=== PATIENT | male | born 1950 | race Caucasian/White ===

== ENCOUNTER 2023-05-16 13:51 | Outpatient (CLI) | payer MEDICARE, BC | END 2023-05-16 23:59 | disposition critical access hospital (66) | LOC: EMS 13:51 | DX: M25.551 Pain in right hip (principal); W18.30XA Fall on same level, unspecified, initial encounter; Y92.008 Other place in unspecified non-institutional (private) residence as the place of occurrence of the external cause | CPT/HCPCS: A0425; A0429 ==

== ENCOUNTER 2023-05-16 14:02 | Inpatient (IN) | payer MEDICARE, BC ==
--- NOTE | 2023-05-16 14:07 | ED Physician Documentation ---
History of Present Illness - Stated complaint Stated Complaint: GLF/R HIP PX - History obtained from History obtained from: Patient - Additonal information Additional information: 73-year-old gentleman with history of hypertension hypercholesterolemia was at home and had a slip and mechanical fall onto his right hip. He has moderate pain and declines pain medication. Came in by ambulance. Unable to walk or bear weight prior to arrival. No other injuries. Declined pain medication on route. Declined pain medication initially here. PD PAST MEDICAL HISTORY - Present Medications Home Medications: Ambulatory Orders Medication Instructions Recorded Confirmed Aspirin [Vazalore] 81 mg PO DAILY 05/16/23 05/16/23 Atorvastatin [Lipitor] 20 mg PO QPM 05/16/23 05/16/23 Losartan Potassium 25 mg PO DAILY 05/16/23 05/16/23 Metoprolol Tartrate [Lopressor] 12.5 mg PO DAILY 05/16/23 05/16/23 - Allergies Allergies/Adverse Reactions: Allergies Allergy/AdvReac Type Severity Reaction Status Date / Time No Known Drug Allergies Allergy Verified 05/16/23 14:15 PD ED PE NORMAL - Vitals Vital signs reviewed: Yes - General General: Alert and oriented X 3, No acute distress - HEENT HEENT: PERRL - Neck Neck: Supple, no meningeal sign, No bony TTP - Cardiac Cardiac: RRR, No murmur - Respiratory Respiratory: No respiratory distress, Clear bilaterally - Abdomen Abdomen: Normal bowel sounds, Soft, Non tender - Extremities Extremities: Other (R hip TTP and shortened, can't range.) - Neuro Neuro: Alert and oriented X 3, Normal speech - Psych Psych: Normal mood, Normal affect Results - Vitals Vitals: Vital Signs - 24 hr 05/16/23 05/16/23 14:08 16:18 Temperature 36.3 C L Heart Rate 74 69 Respiratory 18 Rate Blood Pressure 136/75 H 172/139 H O2 Saturation 96 93 Oxygen O2 Source Room air - EKG (time done) 129 EKG releavant findings:: EKG personally interpreted by author of this note. Relevant findings are: Rate: Rate (enter#) (69) Rhythm: NSR (w pac) Intervals: Other (IVCD) QRS: Normal Ischemia: Normal ST segments - Labs Labs: Laboratory Tests 05/16/23 05/16/23 05/16/23 14:28 14:28 14:28 WBC 6.6 RBC 4.80 Hgb 14.8 Hct 45.7 MCV 95.2 H MCH 30.8 MCHC 32.4 RDW 12.7 Plt Count 154 MPV 9.1 Neut # (Auto) 5.2 Lymph # (Auto) 0.9 L [place] # (Auto) 0.4 Eos # (Auto) 0.1 Baso # (Auto) 0.0 Absolute Nucleated RBC 0.00 Nucleated RBC % 0.0 PT 11.6 INR 1.1 Sodium Potassium Chloride Carbon Dioxide Anion Gap BUN Creatinine Estimated GFR (MDRD) Glucose Calcium Total Bilirubin AST ALT Alkaline Phosphatase Total Protein Albumin Globulin Albumin/Globulin Ratio Blood Type A NEGATIVE Blood Type Recheck Antibody Screen NEGATIVE 05/16/23 05/16/23 14:28 15:43 WBC RBC Hgb Hct MCV MCH MCHC RDW Plt Count MPV Neut # (Auto) Lymph # (Auto) [place] # (Auto) Eos # (Auto) Baso # (Auto) Absolute Nucleated RBC Nucleated RBC % PT INR Sodium 139 Potassium 4.1 Chloride 105 Carbon Dioxide 30 Anion Gap 4.0 L BUN 21 H Creatinine 1.3 Estimated GFR (MDRD) 54 L Glucose 104 Calcium 10.2 Total Bilirubin 0.8 AST 18 ALT 13 Alkaline Phosphatase 49 Total Protein 6.3 L Albumin 4.3 Globulin 2.0 L Albumin/Globulin Ratio 2.2 Blood Type Blood Type Recheck A NEGATIVE Antibody Screen - Rads (name of study) Right hip x-ray demonstrates a subcapital mildly impacted femoral neck fracture Relevant Findings:: Final report received, EMP independent interpretation of test PD Medical Decision Making - ED course Complexity details: reviewed results (CBC/CMP/INR unremarkable) ED course: 73-year-old gentleman fell and has a right hip fracture, looks like an intertrochanteric fracture to me on x-ray. Shortly after arrival I discussed case by phone with Dr. Pollo Roberts, orthopedist with plans to fix it tomorrow morning and subsequently spoke with our hospitalist, Dr. Clay for admission. Departure - Departure Disposition: 66 [facility] DC/Xfer Clinical Impression: Fracture, intertrochanteric, right femur Qualifiers: Encounter type: initial encounter Fracture type: closed Condition: Stable
[2023-05-16 14:36] LABS: BASOPHILS % (AUTO) 0.3 %; EOSINOPHILS # (AUTO) 0.1 10^3/uL (0.0-0.7); EOSINOPHILS % (AUTO) 0.8 %; HCT - HEMATOCRIT 45.7 % (42.0-52.0); HGB - HEMOGLOBIN 14.8 g/dL (14.0-18.0); LYMPHOCYTES # (AUTO) 0.9 10^3/uL (1.5-3.5); LYMPHOCYTES % (AUTO) 13.4 %; MEAN CORPUSCULAR HEMOGLOBIN 30.8 pg (27.0-31.0); MEAN CORPUSCULAR HGB CONC 32.4 g/dL (32.0-36.0); MEAN CORPUSCULAR VOLUME 95.2 fL (80.0-94.0); MEAN PLATELET VOLUME 9.1 fL (7.4-11.4); MONOCYTES # (AUTO) 0.4 10^3/uL (0.0-1.0); MONOCYTES % (AUTO) 6.3 %; NEUTROPHILS # (AUTO) 5.2 10^3/uL (1.5-6.6); NEUTROPHILS % (AUTO) 78.9 %; PLT - PLATELET COUNT 154 10^3/uL (130-450); RED CELL DISTRIBUTION WIDTH 12.7 % (12.0-15.0); WHITE BLOOD COUNT 6.6 x10^3/uL (4.8-10.8)
[2023-05-16 14:42] LABS: INR 1.1 (0.8-1.2); PT - PROTHROMBIN TIME 11.6 secs (9.9-12.6)
[2023-05-16 15:00] LABS: ALBUMIN 4.3 g/dL (3.2-5.5); ALBUMIN/GLOBULIN RATIO 2.2 (1.0-2.2); BILIRUBIN,TOTAL 0.8 mg/dL (0.2-1.0); CALCIUM 10.2 mg/dL (8.5-10.3); CREATININE 1.3 mg/dL (0.6-1.3); POTASSIUM 4.1 mmol/L (3.5-4.5); TOTAL PROTEIN 6.3 g/dL (6.4-8.9)
[2023-05-16] MEDS ORDERED: SODIUM CHLORIDE FLUSH 0.9% 10 ML SYRINGE IVP PRN (16:29)
--- NOTE | 2023-05-16 16:55 | HISTORY & PHYSICAL EXAMINATION ---
History of Present Illness - Admitted From Admitted From:: Emergency Room - History Obtained From Records Reviewed: Yes History obtained from: Patient and Emergency Room Physician (Dr. Vizcarra - History of Present Illness HPI Comment/Other: Froy Carlson is a 73-year-old man who presented to the emergency room after ground-level fall. He has a past medical history significant for hypertension, hyperlipidemia and is status post mitral valve surgery. He slipped and fell on his right hip at home and because he was unable to bear weight or walk he was brought by ambulance to the emergency room for further evaluation. Imaging study revealed an acute right-sided subcapital mildly impacted femoral neck fracture. History - Past Medical History Cardiovascular: reports: Hypertension, High cholesterol, Valve disorder : reports: Other Other Past Medical History: prostate cancer - Past Surgical History Cardiovascular: reports: Other Meds/Allgy - Home Medications Home Medications: Ambulatory Orders Medication Instructions Recorded Confirmed Aspirin [Vazalore] 81 mg PO UD 05/16/23 05/16/23 Atorvastatin [Lipitor] 20 mg PO UD 05/16/23 05/16/23 Calcium 26/Vit D3/Magnesium 15 1 cap PO DAILY 05/16/23 05/16/23 [Nbseovm-Dgy-M5 Complx 167Mg Cp] Glucos Sul 2Kcl/MSM/Chond/C/Mn 1 cap PO BID 05/16/23 05/16/23 [Glucosamine Chondroitin Cap] Losartan Potassium 25 mg PO DAILY 05/16/23 05/16/23 Metoprolol Succinate [Toprol Xl] 25 mg PO DAILY 05/16/23 05/16/23 Multivitamin 1 tab PO DAILY 05/16/23 05/16/23 [place]-3S/Dha/Epa/Fish Oil/D3 1 cap PO DAILY 05/16/23 05/16/23 [[place]-3 + D Softgel] Vit A/C/E/Zinc/Selenium/Copper 1 tab PO DAILY 05/16/23 05/16/23 [Vision Formula Tablet] flaxseed oiL [Flaxseed Oil] 1,000 mg PO DAILY 05/16/23 05/16/23 - Allergies Allergies/Adverse Reactions: Allergies Allergy/AdvReac Type Severity Reaction Status Date / Time No Known Drug Allergies Allergy Verified 05/16/23 14:15 Exam - Vital Signs Reviewed Vital Signs: Yes Vital Signs: Vital Signs x48h Temp Pulse Resp BP Pulse Ox 05/16/23 16:18 69 172/139 H 93 05/16/23 14:08 36.3 C L 74 18 136/75 H 96 - Physical Exam General Appearance: positive: No acute distress, Alert, Moderate distress Eyes Bilateral: positive: Normal inspection Neck: positive: Nml inspection, Trachea midline Respiratory: positive: Other (Good air exchange in all lung stanley no wheezing no crackles.) Cardiovascular: positive: Other (Positive S1-S2 no extra heart sounds.) Abdomen: positive: Other (Soft. Nondistended positive bowel sounds no hepatosplenomegaly) Skin: positive: No rash Extremities: positive: No pedal edema Conclusion/Plan - Problem List (1) Fracture, intertrochanteric, right femur Conclusion/Plan: Dr. Pollo Roberts has been consulted from orthopedic surgery and plan is to take the patient to surgery tomorrow. He is n.p.o. after midnight He is at low risk for perioperative complications. Recommend proceeding with surgery. Initiate treatment D5 1/2 normal saline with 20 mill equivalents of potassium Qualifiers: Encounter type: initial encounter Fracture type: closed (2) Hypertension Conclusion/Plan: Continue metoprolol and losartan. - Lab Results Fish Bones: 05/16/23 14:28 05/16/23 14:28
[2023-05-16] MEDS: KETOROLAC 15 MG/ML VIAL IVP STA (16:58)
[2023-05-16] MEDS: SODIUM CHLORIDE FLUSH 0.9% 10 ML SYRINGE IVP SCH (16:58)
--- NOTE | 2023-05-16 17:21 | XRAY Report ---
PROCEDURE: Hip w/Pelvis 2-3V RT INDICATIONS: hip inj TECHNIQUE: 2 views of the hip were acquired. COMPARISON: None. FINDINGS: Bones: No dislocations. No suspicious bony lesions. There is a mildly impacted subcapital femoral neck fracture on the right, seen on the frontal projection. Soft tissues: No suspicious soft tissue calcifications or masses. IMPRESSION: Acute right-sided subcapital mildly impacted femoral neck fracture. Reviewed by: Avila Jaeger MD on 05/16/2023 3:48 PM PDT Approved by: Avila Jaeger MD on 05/16/2023 3:48 PM PDT Station ID: [id number]
--- NOTE | 2023-05-16 18:09 | PHARMACY PROGRESS NOTE ---
- Best Possible Medication History Admit Date and Time: 05/16/23 1629 Processed by: Pharmacy Medications reviewed in ED?: Yes Medication History completed: Yes Patient Interview: Completed Secondary Source(s): Written medication list, Pharmacy records, Insurance records As the person ultimately responsible for medication therapy, providers are able to order a medication from an existing home medication list in [facility] via the "Reconcile Routine" prior to Confirmation of that medication by decision support analyst. Such practice is discouraged except when the physician, in their clinical judgment, deems that a medical need exists for a medication without regard to previous use.
[2023-05-16] MEDS: HYDROcod/ACETAM 5/325 MG TABLET PO PRN (18:22)
--- NOTE | 2023-05-16 19:17 | CONSULTATION NOTE ---
Referring Provider Name of Referring Provider:: Sergio Zambrano Consult Date: 05/16/23 History of Present Illness - Admitted From Admitted From:: ED - History of Present Illness HPI Comment/Other: Mr. Froy Carlson is a 73-year-old male who apparently had a ground- level fall just after lunch today sustaining a closed impacted right intertrochanteric hip fracture. Patient denies any loss of consciousness or other injuries. No prior hip fractures or long bone fractures in the past. Patient was then able to stand or weight-bear after his accident. Was taken to the emergency room by ambulance where x-rays revealed his hip fracture. Patient apparently last had lunch at about noon today. Examination: On examination patient's right leg was externally rotated and slightly shortened. Maximal tenderness was over the lateral aspect of his right hip. Patient able to move his toes voluntarily. Sensation intact throughout the lower extremity. 2+ dorsalis pedis pulse. X-rays: X-rays that were taken in the emergency room showed an impacted intertrochanteric hip fracture Assessment: Closed right intertrochanteric hip fracture Plan: After medical clearance by the hospital hospitalist will proceed with surgical intervention. Will stabilize the fracture with a InterTAN intramedullary nail. Surgery has been tentatively scheduled for Friday morning at 9 in the morning. He will be n.p.o. after midnight tonight. Patient will receive prophylactic antibiotics half hour or so prior to his incision. The risk and benefits of surgery were explained to the patient and his . Potential complications include wound infections malunion nonunion blood clots anesthesia risks. Questions were answered. Patient wishes to proceed with surgery as indicated. Consent was signed. Leg marked. History - Past Medical History Cardiovascular: reports: Hypertension, High cholesterol, Valve disorder : reports: Other Other Past Medical History: prostate cancer - Past Surgical History Cardiovascular: reports: Other Meds/Allgy - Home Medications Home Medications: Ambulatory Orders Medication Instructions Recorded Confirmed Aspirin [Vazalore] 81 mg PO UD 05/16/23 05/16/23 Atorvastatin [Lipitor] 20 mg PO UD 05/16/23 05/16/23 Calcium 26/Vit D3/Magnesium 15 1 cap PO DAILY 05/16/23 05/16/23 [[id number]-Ews-I6 Complx 167Mg Cp] Glucos Sul 2Kcl/MSM/Chond/C/Mn 1 cap PO BID 05/16/23 05/16/23 [Glucosamine Chondroitin Cap] Losartan Potassium 25 mg PO DAILY 05/16/23 05/16/23 Metoprolol Succinate [Toprol Xl] 25 mg PO DAILY 05/16/23 05/16/23 Multivitamin 1 tab PO DAILY 05/16/23 05/16/23 [place]-3S/Dha/Epa/Fish Oil/D3 1 cap PO DAILY 05/16/23 05/16/23 [[place]-3 + D Softgel] Vit A/C/E/Zinc/Selenium/Copper 1 tab PO DAILY 05/16/23 05/16/23 [Vision Formula Tablet] flaxseed oiL [Flaxseed Oil] 1,000 mg PO DAILY 05/16/23 05/16/23 - Allergies Allergies/Adverse Reactions: Allergies Allergy/AdvReac Type Severity Reaction Status Date / Time No Known Drug Allergies Allergy Verified 05/16/23 14:15 Exam - Vital Signs Vital Signs: Vital Signs x48h Temp Pulse Pulse Resp BP BP Pulse Ox 05/16/23 18:59 36.5 C 05/16/23 18:00 37.5 C 68 18 133/58 H 94 05/16/23 17:32 68 18 131/77 H 95 05/16/23 16:18 69 172/139 H 93 05/16/23 14:08 36.3 C L 74 18 136/75 H 96 Conclusion and Plan - Lab Results Laboratory Results 05/16/23 15:43: Blood Type Recheck A NEGATIVE 05/16/23 14:28: Sodium 139, Potassium 4.1, Chloride 105, Carbon Dioxide 30, Anion Gap 4.0 L, BUN 21 H, Creatinine 1.3, Estimated GFR (MDRD) 54 L, Glucose 104, Calcium 10.2, Total Bilirubin 0.8, AST 18, ALT 13, Alkaline Phosphatase 49, Total Protein 6.3 L, Albumin 4.3, Globulin 2.0 L, Albumin/Globulin Ratio 2.2 05/16/23 14:28: PT 11.6, INR 1.1 05/16/23 14:28: WBC 6.6, RBC 4.80, Hgb 14.8, Hct 45.7, MCV 95.2 H, MCH 30.8, MCHC 32.4, RDW 12.7, Plt Count 154, MPV 9.1, Neut # (Auto) 5.2, Lymph # (Auto) 0.9 L, [place] # (Auto) 0.4, Eos # (Auto) 0.1, Baso # (Auto) 0.0, Absolute Nucleated RBC 0.00, Nucleated RBC % 0.0 05/16/23 14:28: Blood Type A NEGATIVE, Antibody Screen NEGATIVE - Diagnosis Diagnosis: Right hip fracture - Consultation Note Consultation Note: See above - Plan Plan: See above
[2023-05-16] MEDS ORDERED: IBUPROFEN 800 MG TABLET PO PRN (20:14)
[2023-05-16] MEDS ORDERED: ACETAMINOPHEN 325 MG TABLET PO PRN (20:15)
[2023-05-16] MEDS: D5.45NS W/20 MEQ KCL 1,000 ML IV SCH (20:51)
[2023-05-16] MEDS: METOPROLOL SUCCINATE 25 MG TABLET PO SCH (21:35)
[2023-05-16] MEDS: ZOLPIDEM 5 MG TABLET PO PRN (21:35)
[2023-05-17 05:44] LABS: BASOPHILS % (AUTO) 0.1 %; EOSINOPHILS # (AUTO) 0.2 10^3/uL (0.0-0.7); EOSINOPHILS % (AUTO) 2.6 %; HCT - HEMATOCRIT 41.2 % (42.0-52.0); HGB - HEMOGLOBIN 13.2 g/dL (14.0-18.0); LYMPHOCYTES # (AUTO) 0.9 10^3/uL (1.5-3.5); LYMPHOCYTES % (AUTO) 11.3 %; MEAN CORPUSCULAR HEMOGLOBIN 30.5 pg (27.0-31.0); MEAN CORPUSCULAR VOLUME 95.2 fL (80.0-94.0); MEAN PLATELET VOLUME 9.4 fL (7.4-11.4); MONOCYTES # (AUTO) 0.7 10^3/uL (0.0-1.0); MONOCYTES % (AUTO) 8.9 %; NEUTROPHILS # (AUTO) 5.9 10^3/uL (1.5-6.6); NEUTROPHILS % (AUTO) 76.8 %; PLT - PLATELET COUNT 144 10^3/uL (130-450); RED BLOOD COUNT 4.33 10^6/uL (4.70-6.10); RED CELL DISTRIBUTION WIDTH 12.8 % (12.0-15.0); WHITE BLOOD COUNT 7.6 x10^3/uL (4.8-10.8)
[2023-05-17 05:58] LABS: CALCIUM 9.2 mg/dL (8.5-10.3); CREATININE 1.1 mg/dL (0.6-1.3); MAGNESIUM 1.9 mg/dL (1.7-2.3); PHOSPHORUS 2.7 mg/dL (2.5-5.0); POTASSIUM 4.1 mmol/L (3.5-4.5)
[2023-05-17] MEDS: PANTOPRAZOLE 40 MG TABLET PO SCH (06:54)
[2023-05-17] MEDS: LOSARTAN 50 MG TABLET PO SCH (08:04)
[2023-05-17] MEDS: BUPIVACAINE 0.25%-EPI 1:200000 PF 30 ML VIAL SUBQ ONE (08:05)
[2023-05-17] MEDS: BUPIVACAINE 0.5%-EPI 1:200000 PF 30 ML VIAL SUBQ ONE ×2 (08:05)
[2023-05-17] MEDS ORDERED: BUPIVACAINE 0.5%-EPI 1:200000 PF 30 ML VIAL ONE (08:16)
--- NOTE | 2023-05-17 08:49 | PROVIDER PROGRESS NOTE ---
Assessment/Plan - Problem List (1) Fracture, intertrochanteric, right femur Qualifiers: Encounter type: initial encounter Fracture type: closed Assessment/Plan: Mr. Carlson is scheduled for surgery this morning. He is at low risk for perioperative complications. Recommend proceeding with surgery. Continue D5 1/2 normal saline with 20 mill equivalents of potassium he returns from surgery DVT prophylaxis with Lovenox 30 mg twice daily. Qualifiers: Encounter type: initial encounter Fracture type: closed (2) Hypertension Conclusion/Plan: Continue metoprolol and losartan. - Current Meds Current Meds: Current Medications Generic Name Dose Route Start Last Admin Trade Name Freq PRN Reason Stop Dose Admin Hydrocodone Bitart/Acetaminophen 1 tab 05/16/23 16:47 05/17/23 08:03 Hydrocod/Acetam 5/325 Mg Tablet PO 1 tab Q4HR PRN Administration Pain 5 to 7 Potassium Chloride/Dextrose/Sod Cl 1,000 mls @ 83.333 mls/hr 05/16/23 21:00 05/17/23 08:03 D5.45ns W/20 Meq Kcl IV 83.333 mls/hr .Q12H JANICE Administration Losartan Potassium 25 mg 05/17/23 09:00 05/17/23 08:04 Losartan 50 Mg Tablet PO 25 mg DAILY JANICE Administration Metoprolol Succinate 12.5 mg 05/16/23 22:00 05/16/23 21:35 Metoprolol Succinate 25 Mg Tablet PO 12.5 mg HS JANICE Administration Pantoprazole Sodium 40 mg 05/17/23 07:00 05/17/23 06:54 Pantoprazole 40 Mg Tablet PO 40 mg QDAC JANICE Administration Sodium Chloride 10 ml 05/16/23 17:00 05/17/23 08:04 Sodium Chloride Flush 0.9% 10 Ml Syringe IVP Not Given 0100,0900,1700 JANICE Zolpidem Tartrate 5 mg 05/16/23 21:00 05/16/23 21:35 Zolpidem 5 Mg Tablet PO 5 mg QPM PRN Administration Insomnia - Lab Result Fish Bone Diagrams: 05/17/23 04:53 05/17/23 04:53 - Additional Planning My Orders: My Active Orders 05/16/23 16:29 Sodium Chloride Flush 0.9% [Normal Saline Flush 0.9%] 10 ml IVP PRN PRN 05/16/23 16:30 Activity Orders [RC] Q2HR IO [RC] IOSHIFT Incentive Spirometry - RT [RC] TID Initiate Bowel Care Protocol [RC] .protocol Initiate Line Care Protocol [RC] QSHIFT Initiate Personal Care Protoco [RC] .protocol Oxygen Therapy [RC] .PRN Vital Signs [RC] 0800,1600,0000 Code Status [OTHERS] Routine Condition of Patient [OTHERS] Routine DVT Prophylaxis [OTHERS] Routine 05/16/23 16:47 HYDROcod/ACETAM 5/325 [[place] 5/325] 1 tab PO Q4HR PRN 05/16/23 16:51 Orthopedics Consult [CONS] Routine 05/16/23 17:00 Sodium Chloride Flush 0.9% [Normal Saline Flush 0.9%] 10 ml IVP 0100,0900,1700 05/16/23 20:14 Ibuprofen [Motrin] 800 mg PO Q6H PRN 05/16/23 20:15 Acetaminophen [Tylenol] 650 mg PO Q4HR PRN 05/16/23 21:00 D5.45ns W/20 Meq KCl 1,000 ml IV 83.333 mls/hr Zolpidem [Ambien] 5 mg PO QPM PRN 05/16/23 22:00 Metoprolol Succinate [Toprol Xl] 12.5 mg PO HS 05/17/23 00:01 NPO except Meds [DIET] 05/17/23 07:00 Pantoprazole [Protonix] 40 mg PO QDAC 05/17/23 09:00 Losartan [Cozaar] 25 mg PO DAILY Subjective - Subjective Patient Reports: Other (Patient without significant change since yesterday. He continues to complain of right hip pain no other complaints at this time.) Objective Vital Signs: Vital Signs - 24 hr 05/16/23 05/16/23 05/16/23 14:08 16:18 17:32 Temperature 36.3 C L Heart Rate 74 69 68 Heart Rate [ Brachial] Respiratory 18 18 Rate Blood Pressure 136/75 H 172/139 H 131/77 H Blood Pressure [Right Brachial artery] O2 Saturation 96 93 95 05/16/23 05/16/23 05/17/23 18:00 18:59 01:06 Temperature 37.5 C 36.5 C 37.0 C Heart Rate Heart Rate [ 68 68 Brachial] Respiratory 18 18 Rate Blood Pressure Blood Pressure 133/58 H 103/60 [Right Brachial artery] O2 Saturation 94 93 05/17/23 08:06 Temperature 37.0 C Heart Rate Heart Rate [ 64 Brachial] Respiratory 18 Rate Blood Pressure Blood Pressure 128/69 [Right Brachial artery] O2 Saturation 92 Oxygen O2 Source Room air I&O (Last 24 Hrs): Intake and Output Totals x24h 05/15/23 05/16/23 05/17/23 23:59 23:59 23:59 Intake Total 340 933.33 Output Total 125 350 Balance 215 583.33 General: Alert, Oriented x3, No acute distress Neck: Supple, No JVD Neuro: Alert, Non Focal Cardiovascular: Other (Positive S1-S2 no extra heart sounds.) Respiratory: Other (Good air exchange in all lung stanley no wheezing no crackles.) Abdomen: Normal bowel sounds, No tenderness Extremities: No cyanosis, No edema Skin: No rashes - Results Results: Laboratory Results WBC 7.6 x10^3/uL (4.8-10.8) 05/17/23 04:53 RBC 4.33 10^6/uL (4.70-6.10) L 05/17/23 04:53 Hgb 13.2 g/dL (14.0-18.0) L 05/17/23 04:53 Hct 41.2 % (42.0-52.0) L 05/17/23 04:53 MCV 95.2 fL (80.0-94.0) H 05/17/23 04:53 MCH 30.5 pg (27.0-31.0) 05/17/23 04:53 MCHC 32.0 g/dL (32.0-36.0) 05/17/23 04:53 RDW 12.8 % (12.0-15.0) 05/17/23 04:53 Plt Count 144 10^3/uL (130-450) 05/17/23 04:53 MPV 9.4 fL (7.4-11.4) 05/17/23 04:53 Neut # (Auto) 5.9 10^3/uL (1.5-6.6) 05/17/23 04:53 Lymph # (Auto) 0.9 10^3/uL (1.5-3.5) L 05/17/23 04:53 [place] # (Auto) 0.7 10^3/uL (0.0-1.0) 05/17/23 04:53 Eos # (Auto) 0.2 10^3/uL (0.0-0.7) 05/17/23 04:53 Baso # (Auto) 0.0 10^3/uL (0.0-0.1) 05/17/23 04:53 Absolute Nucleated RBC 0.00 x10^3/uL 05/17/23 04:53 Nucleated RBC % 0.0 /100WBC 05/17/23 04:53 PT 11.6 secs (9.9-12.6) 05/16/23 14:28 INR 1.1 (0.8-1.2) 05/16/23 14:28 Sodium 138 mmol/L (135-145) 05/17/23 04:53 Potassium 4.1 mmol/L (3.5-4.5) 05/17/23 04:53 Chloride 107 mmol/L (101-111) 05/17/23 04:53 Carbon Dioxide 26 mmol/L (21-32) 05/17/23 04:53 Anion Gap 5.0 (6-13) L 05/17/23 04:53 BUN 24 mg/dL (6-20) H 05/17/23 04:53 Creatinine 1.1 mg/dL (0.6-1.3) 05/17/23 04:53 Estimated GFR (MDRD) 65 (>89) L 05/17/23 04:53 Glucose 116 mg/dL (74-104) H 05/17/23 04:53 Calcium 9.2 mg/dL (8.5-10.3) 05/17/23 04:53 Phosphorus 2.7 mg/dL (2.5-5.0) 05/17/23 04:53 Magnesium 1.9 mg/dL (1.7-2.3) 05/17/23 04:53 Total Bilirubin 0.8 mg/dL (0.2-1.0) 05/16/23 14:28 AST 18 IU/L (10-42) 05/16/23 14:28 ALT 13 IU/L (10-60) 05/16/23 14:28 Alkaline Phosphatase 49 IU/L (42-121) 05/16/23 14:28 Total Protein 6.3 g/dL (6.4-8.9) L 05/16/23 14:28 Albumin 4.3 g/dL (3.2-5.5) 05/16/23 14: Globulin 2.0 g/dL (2.1-4.2) L 05/16/23 14:28 Albumin/Globulin Ratio 2.2 (1.0-2.2) 05/16/23 14:28 Blood Type A NEGATIVE 05/16/23 14:28 Blood Type Recheck A NEGATIVE 05/16/23 15:43 Antibody Screen NEGATIVE 05/16/23 14:28
[2023-05-17] MEDS ORDERED: MIDAZOLAM 2 MG/2 ML VIAL ONE (08:53)
[2023-05-17] MEDS ORDERED: fentaNYL 100 MCG/2 ML VIAL ONE (08:53)
[2023-05-17] MEDS ORDERED: PROPOFOL 500 MG/50 ML 500 MG/50 ML VIAL ONE (08:53)
[2023-05-17] MEDS ORDERED: KETAMINE 200 MG/20 ML VIAL ONE (08:58)
[2023-05-17] MEDS ORDERED: METOPROLOL SUCCINATE 25 MG TABLET PO SCH (09:00)
[2023-05-17] MEDS ORDERED: PHENYLEPHRINE HCL 0.5 MG/5 ML AMPULE ONE (09:00)
--- NOTE | 2023-05-17 09:11 | ANESTHESIA ---
Pre-Anesthesia VS, & Labs - Diagnosis Diagnosis Right hip fracture - Procedure Right Hip Nailing Vital Signs: Temp Pulse Resp BP Pulse Ox O2 Flow Rate 37.0 C 64 18 128/69 92 05/17/23 08:06 05/17/23 08:06 05/17/23 08:06 05/17/23 08:06 05/17/23 08:06 Height: 6 ft 1 in Weight (kg): 90 kg Body Mass Index: 26.2 BMI Classification: Overweight - NPO >8 hours - Lab Results Current Lab Results: Laboratory Tests 05/17/23 04:53: Sodium 138, Potassium 4.1, Chloride 107, Carbon Dioxide 26, Anion Gap 5.0 L, BUN 24 H, Creatinine 1.1, Estimated GFR (MDRD) 65 L, Glucose 116 H, Calcium 9.2, Phosphorus 2.7, Magnesium 1.9 05/17/23 04:53: WBC 7.6, RBC 4.33 L, Hgb 13.2 L, Hct 41.2 L, MCV 95.2 H, MCH 30.5, MCHC 32.0, RDW 12.8, Plt Count 144, MPV 9.4, Neut # (Auto) 5.9, Lymph # (Auto) 0.9 L, Bartholomew # (Auto) 0.7, Eos # (Auto) 0.2, Baso # (Auto) 0.0, Absolute Nucleated RBC 0.00, Nucleated RBC % 0.0 05/16/23 15:43: Blood Type Recheck A NEGATIVE 05/16/23 14:28: Sodium 139, Potassium 4.1, Chloride 105, Carbon Dioxide 30, Anion Gap 4.0 L, BUN 21 H, Creatinine 1.3, Estimated GFR (MDRD) 54 L, Glucose 104, Calcium 10.2, Total Bilirubin 0.8, AST 18, ALT 13, Alkaline Phosphatase 49, Total Protein 6.3 L, Albumin 4.3, Globulin 2.0 L, Albumin/Globulin Ratio 2.2 05/16/23 14:28: PT 11.6, INR 1.1 05/16/23 14:28: WBC 6.6, RBC 4.80, Hgb 14.8, Hct 45.7, MCV 95.2 H, MCH 30.8, MCHC 32.4, RDW 12.7, Plt Count 154, MPV 9.1, Neut # (Auto) 5.2, Lymph # (Auto) 0.9 L, Bartholomew # (Auto) 0.4, Eos # (Auto) 0.1, Baso # (Auto) 0.0, Absolute Nucleated RBC 0.00, Nucleated RBC % 0.0 05/16/23 14:28: Blood Type A NEGATIVE, Antibody Screen NEGATIVE Lab results reviewed: Yes Fish Bones: 05/17/23 04:53 05/17/23 04:53 Home Medications and Allergies Home Medications: Ambulatory Orders Aspirin [Vazalore] 81 mg PO UD 05/16/23 Atorvastatin [Lipitor] 20 mg PO UD 05/16/23 Calcium 26/Vit D3/Magnesium 15 [Odqycvg-[id number] Complx 167Mg Cp] 1 cap PO DAILY 0 05/16/23 Glucos Sul 2Kcl/MSM/Chond/C/Mn [Glucosamine Chondroitin Cap] 1 cap PO BID 05/16/23 Losartan Potassium 25 mg PO DAILY 05/16/23 Metoprolol Succinate [Toprol Xl] 25 mg PO DAILY 05/16/23 Multivitamin 1 tab PO DAILY 05/16/23 [place]-3S/Dha/Epa/Fish Oil/D3 [[place]-3 + D Softgel] 1 cap PO DAILY 05/16/23 Vit A/C/E/Zinc/Selenium/Copper [Vision Formula Tablet] 1 tab PO DAILY 05/16/23 flaxseed oiL [Flaxseed Oil] 1,000 mg PO DAILY 05/16/23 Active Medications Acetaminophen (Acetaminophen 325 Mg Tablet) 650 mg PO Q4HR PRN PRN Reason: Pain or Fever > 38C (100.4F) Hydrocodone Bitart/Acetaminophen (Hydrocod/Acetam 5/325 Mg Tablet) 1 tab PO Q4HR PRN PRN Reason: Pain 5 to 7 Last Admin: 05/17/23 08:03 Dose: 1 tab Potassium Chloride/Dextrose/Sod Cl (D5.45ns W/20 Meq Kcl) 1,000 mls @ 83.333 mls/hr IV .Q12H [facility] Last Admin: 05/17/23 08:03 Dose: 83.333 mls/hr Ibuprofen (Ibuprofen 800 Mg Tablet) 800 mg PO Q6H PRN PRN Reason: Moderate Pain (Level 4-6) Losartan Potassium (Losartan 50 Mg Tablet) 25 mg PO DAILY [facility] Last Admin: 05/17/23 08:04 Dose: 25 mg Metoprolol Succinate (Metoprolol Succinate 25 Mg Tablet) 12.5 mg PO HS [facility] Last Admin: 05/16/23 21:35 Dose: 12.5 mg Pantoprazole Sodium (Pantoprazole 40 Mg Tablet) 40 mg PO QDAC [facility] Last Admin: 05/17/23 06:54 Dose: 40 mg Sodium Chloride (Sodium Chloride Flush 0.9% 10 Ml Syringe) 10 ml IVP PRN PRN PRN Reason: NEEDED PER PROVIDER ORDERS Sodium Chloride (Sodium Chloride Flush 0.9% 10 Ml Syringe) 10 ml IVP 0100,0900,1700 [facility] Last Admin: 05/17/23 08:04 Dose: Not Given Zolpidem Tartrate (Zolpidem 5 Mg Tablet) 5 mg PO QPM PRN PRN Reason: Insomnia Last Admin: 05/16/23 21:35 Dose: 5 mg Aspirin [Vazalore] 81 mg PO UD 05/16/23 Atorvastatin [Lipitor] 20 mg PO UD 05/16/23 Calcium 26/Vit D3/Magnesium 15 [Yactppm-Wzr-R2 Complx 167Mg Cp] 1 cap PO DAILY 05/16/23 Glucos Sul 2Kcl/MSM/Chond/C/Mn [Glucosamine Chondroitin Cap] 1 cap PO BID 05/16/23 Losartan Potassium 25 mg PO DAILY 05/16/23 Metoprolol Succinate [Toprol Xl] 25 mg PO DAILY 05/16/23 Multivitamin 1 tab PO DAILY 05/16/23 [place]-3S/Dha/Epa/Fish Oil/D3 [[place]-3 + D Softgel] 1 cap PO DAILY 05/16/23 Vit A/C/E/Zinc/Selenium/Copper [Vision Formula Tablet] 1 tab PO DAILY 05/16/23 flaxseed oiL [Flaxseed Oil] 1,000 mg PO DAILY 05/16/23 Allergies/Adverse Reactions: Allergies Allergy/AdvReac Type Severity Reaction Status Date / Time No Known Drug Allergies Allergy Verified 05/16/23 14:15 Anes History & Medical History - Medical History Cardiovascular: reports: Hypertension, High cholesterol, Valve disorder (Had mitral valve repair in 2014. Reports no issues since repair and last ECHO report did not indicate any issues.) Urinary: reports: None, Other Neuro: reports: None Musculoskeletal: reports: None Endocrine/Autoimmune: reports: None Blood Disorders: reports: None Skin: reports: None Smoking Status: Never smoker Psychosocial: reports: No issues indicated History of Cancer?: No Other Past Medical History: prostate cancer - Surgical History Cardiothoracic: reports: Other (mitral valve repair) Exam General: Alert, Oriented x3, Cooperative, No acute distress Dental: WNL Mouth Openin Fingerbreadth Neck Mobility: Normal Mallampati classification: II Thyromental Distance: 4-6 cm Mental/Cognitive Status: Alert/Oriented X3, Normal for patient Plan Anesthesia Type: Spinal (General as back up), Fascia Iliaca Block (right) Regional Block: Per Surgeon's request for Post Op pain control Consent for Procedure(s) Verified and Reviewed: Yes Code Status: Attempt Resuscitation ASA classification: 2-Mild systemic disease Is this case an emergency?: No
[2023-05-17] MEDS ORDERED: NALOXONE 0.4 MG/ML VIAL IVP PRN (09:12)
[2023-05-17] MEDS ORDERED: ONDANSETRON 4 MG/2 ML VIAL IVP PRN (09:12)
[2023-05-17] MEDS ORDERED: HYDROmorphone 0.5 MG/0.5 ML SYRINGE IVP PRN (09:12)
[2023-05-17] MEDS ORDERED: MORPHINE 2 MG/ML CARPUJECT IVP PRN (09:12)
[2023-05-17] MEDS ORDERED: fentaNYL 100 MCG/2 ML VIAL IVP PRN (09:12)
[2023-05-17] MEDS ORDERED: ATROPINE ABBOJECT 1 MG/10 ML SYRINGE IVP PRN (09:12)
[2023-05-17] MEDS ORDERED: ceFAZolin 2 GM VIAL ONE (09:24)
[2023-05-17] MEDS ORDERED: LACTATED RINGERS 1,000 ML IV SCH (10:00)
[2023-05-17] MEDS ORDERED: ePHEDrine 50 MG/ML VIAL IVP ONE (10:08)
[2023-05-17] MEDS ORDERED: ROPIVACAINE 0.5% PF 20 ML VIAL ONE (11:10)
[2023-05-17] MEDS ORDERED: SODIUM CHLORIDE 0.9% 10 ML VIAL IVP ONE (11:10)
[2023-05-17] MEDS ORDERED: DEXAMETHASONE 10 MG/ML VIAL ONE (11:34)
[2023-05-17] MEDS ORDERED: SODIUM CHLORIDE FLUSH 0.9% 10 ML SYRINGE IVP PRN (11:35)
[2023-05-17] MEDS: LACTATED RINGERS 500 ML IV ONE (11:50)
--- NOTE | 2023-05-17 11:50 | OPERATIVE REPORT ---
Operative Report - General Admit Date: 05/16/23 Procedure Date: 05/17/23 Planned Procedure: Closed reduction and InterTAN nailing of right hip fracture Pre-Op Diagnosis: Right intertrochancteric hip fracture Procedure Performed: Closed reduction and InterTAN nailing of right hip fracture Post Op Diagnosis: Same - Procedure Note Primary Surgeon: Jimbo Roberts MD Anesthesia Provider: Kylie Rao CRNA Anesthesia Technique: Spinal IV Fluids (mL): 1,200 Estimated Blood Loss (mL): 150 Complications: None - Other Other Information/Narrative: Description of procedure: Patient was taken the operating room in the morning of his surgery and was placed under a spinal anesthetic Complications. He was then positioned supine and transferred over to the Vance fracture table. We then placed his right lower extremity and axial traction with the leg internally rotated about 15 to 20 degrees. Fluoroscopic views of the hip fracture in AP and lateral projection showed good reduction of our fracture and adequate visualization of the proximal femur and hip. We then prepped and draped the lateral hip in usual fashion for our procedure. Making short oblique incision just proximal to the tip of the greater trochanter we dissected down to the tip of the greater trochanter. This is where we placed the threaded tip guidewire. Its position at the tip of the trochanter was confirmed and fluoroscopic views. We then proceeded with power to drive the guidepin through the greater trochanter and down the center of the femoral shaft proximally. Its position was confirmed in AP and lateral projections at the hip. Satisfied with the depth and position of our pin we then proceeded to ream the proximal femur with a 16 mm channel reamer over our guidepin. This was extended down to the level of the lesser trochanter. We then remove the tag channel reamer and guidepin. This was then followed by our selected short InterTAN nail. This was 11.5 mm diameter. This was inserted with the inserting apparatus and tapped into place with our mallet. Fluoroscopic views and AP path projection showed satisfactory placement of our intramedullary nail in the proper depth. Satisfied with this we then proceeded to insert our cannulated guidepin through the oblique hole of our out regular in line with the proximal slot in our nail. We then proceeded to insert with power the threaded tip guidewire through our cannulated guide through the proximal femur femoral neck and into the femoral head. Fluoroscopic views and AP and lateral projection were then obtained. Position in the AP view was felt fine. The lateral position showed the pin to be more posterior than we like. We then redirected our threaded tip guidewire to a more central position. This is both in the AP and lateral projections. This was advanced to the tip of the guide pin was within 3 to 4 mm of the subchondral bone of the femoral head. We then proceeded to remove our pin guide and placed over our guidepin in the cannulated reamer. This was then used to ream the proximal femur up to within 4 to 5 mm of the subchondral bone and AP and lateral projections. We removed the cannulated reamer and then inserted our selected subtrochanteric hip lag screw over our guidepin. This was advanced to where the tip of the subtrochanteric screw was within for 5 mm of subchondral bone. Quality of bone was quite good as we were reaming the femoral head and inserting our subtrochanteric hip screw. Minimal impaction of the fracture was required. We then removed our insertion apparatus for the hip screw Finally our attention was directed in the distal portion of our alignment apparatus. Skin incision was made over the lateral mid thigh and through this incision we inserted our gold and silver guides through the distal end of our insertion apparatus. Next using the drill we drilled through the cannulated concentric drill sleeves and was able to drill the lateral and medial femoral shaft with our drill as the drill passed through the distal end of our nail. Direct measurement was then determined to the 32.5 mm screw would be utilized. Drill was removed and the selected screw was then inserted over our gold sleeve. Fluoroscopic views were then obtained showing the screws to be in satisfactory position and depth. We then remove the outrigger from our inserted nail. Final views of the inserted nail and AP and lateral projections both at the mid thigh and at the hip showed a good reduction or for our fracture as well as satisfactory placement of all hardware. We then irrigated the wounds out thoroughly with saline. We then closed the wound in layers using 2-0 Vicryl to close the fascia stacia incisions as well as the subcutaneous tissues. Finally skin raf used to approximate the skin edge. We then injected 10 cc of half percent Marcaine with epinephrine to give incisional anesthesia. We then dressed the wounds. Patient was then transferred off the Vance table and taken to recovery room in her its recovery stretcher. Estimated blood loss: 150 mL Replacement: Thousand 200 mL of crystalloid Intraoperative complications: None Plan: Patient will be advanced weightbearing as tolerated on 6 extremity all ambulating with a walker as tolerated.
--- NOTE | 2023-05-17 12:01 | ANESTHESIA POST OP EVALUATION ---
Anesthesia Post Eval - Post Anesthesia Eval Vitals: Last Vital Signs Temp 36.3 C L 05/17/23 11:55 Pulse 63 05/17/23 11:55 Resp 16 05/17/23 11:55 BP 113/71 05/17/23 11:55 Pulse Ox 95 05/17/23 11:55 O2 Flow Rate CV Function Including HR & BP: Stable Pain Control: Satisfactory Nausea & Vomiting: Negative Mental Status: Baseline Respiratory Status: Airway Patent Hydration Status: Satisfactory Anesthesia Complications: None
[2023-05-17] MEDS: ceFAZolin (2G) 2 GM in SODIUM CHLORIDE 0.9% MINIBAG 100 ML IV SCH ×2 (12:41→18:11)
[2023-05-17] MEDS: ACETAMINOPHEN 500 MG TABLET PO SCH (13:13)
[2023-05-17] MEDS: NS W/20 MEQ KCL 1,000 ML IV SCH (13:14)
--- NOTE | 2023-05-17 15:21 | XRAY Report ---
PROCEDURE: OR C-Arm Procedure INDICATIONS: HIP NAILING FLUORO TIME: 0.7 TECHNIQUE: 4 intraoperative fluoroscopic views of right hip were obtained. COMPARISON: None. FINDINGS: Intraoperative fluoroscopic views shows internal fixation of right proximal femur with intramedullary hector and surgical screws in place. IMPRESSION: Fluoroscopy guidance was provided intraoperatively for internal fixation of right hip. Reviewed by: Lazaro Almendarez MD on 05/17/2023 3:20 PM PDT Approved by: Lazaro Almendarez MD on 05/17/2023 3:20 PM PDT Station ID: [id number]
[2023-05-17] MEDS: BACITRACIN ZINC OINT 1 PACKET TOP PRN (17:48)
[2023-05-17] MEDS: ethyl alcohoL 62% SWAB AMPULE NAS SCH (20:20)
[2023-05-17] MEDS: CELECOXIB 100 MG CAPSULE PO SCH (20:20)
[2023-05-17] MEDS: ASPIRIN EC 81 MG TABLET PO SCH (20:20)
[2023-05-17] MEDS: SODIUM CHLORIDE FLUSH 0.9% 10 ML SYRINGE IVP SCH (20:33)
[2023-05-18] MEDS: dexAMETHasone 4 MG TABLET PO SCH (06:44)
[2023-05-18] MEDS: ENOXAPARIN 30 MG/0.3 ML SYRINGE SUBQ SCH (09:20)
--- NOTE | 2023-05-18 10:39 | PROVIDER PROGRESS NOTE ---
Subjective - Prog Note Date Prog Note Date: 05/18/23 Prog Note Time: 10:36 - Subjective Pt reports feeling: Improved (Minimal pain sitting in chair) Objective - Vital Signs/Intake & Output Vital Signs: Vital Signs x48h Temp Pulse Resp BP Pulse Ox 05/18/23 09:25 36.8 C 05/18/23 09:14 37.2 C 79 18 139/73 H 94 05/18/23 08:00 37.2 C 79 18 139/73 H 94 05/18/23 05:33 36.5 C 73 18 156/78 H 93 Intake & Output: Intake & Output 05/15/23 05/16/23 05/17/23 05/18/23 23:59 23:59 23:59 23:59 Intake Total 340 2145.413 100 Output Total 125 1425 1380 Balance 215 720.413 -1280 - Lab Results Fish Bones: 05/17/23 04:53 05/17/23 04:53 - Other Results/Comments Other Results/Comments: EXAMINATION: Dressing intact. Moves toes well. sensation intact. Good cap filling Assessment/Plan - Problem List (1) Fracture, intertrochanteric, right femur Impression: Satis post op PLAN: Continue PT. Possible D/C home on Mon or Tues with Home PT. Qualifiers: Encounter type: subsequent encounter Fracture type: closed Fracture alignment: nondisplaced
[2023-05-18 10:53] LABS: BASOPHILS % (AUTO) 0.1 %; EOSINOPHILS % (AUTO) 0.2 %; HCT - HEMATOCRIT 37.3 % (42.0-52.0); LYMPHOCYTES # (AUTO) 0.4 10^3/uL (1.5-3.5); LYMPHOCYTES % (AUTO) 3.3 %; MEAN CORPUSCULAR HEMOGLOBIN 30.4 pg (27.0-31.0); MEAN CORPUSCULAR HGB CONC 32.2 g/dL (32.0-36.0); MEAN CORPUSCULAR VOLUME 94.4 fL (80.0-94.0); MEAN PLATELET VOLUME 9.1 fL (7.4-11.4); MONOCYTES # (AUTO) 0.3 10^3/uL (0.0-1.0); NEUTROPHILS # (AUTO) 10.3 10^3/uL (1.5-6.6); PLT - PLATELET COUNT 151 10^3/uL (130-450); RED BLOOD COUNT 3.95 10^6/uL (4.70-6.10); RED CELL DISTRIBUTION WIDTH 12.9 % (12.0-15.0); WHITE BLOOD COUNT 11.1 x10^3/uL (4.8-10.8)
[2023-05-18 11:02] LABS: CALCIUM 9.6 mg/dL (8.5-10.3); CREATININE 1.1 mg/dL (0.6-1.3); PHOSPHORUS 2.4 mg/dL (2.5-5.0); POTASSIUM 4.3 mmol/L (3.5-4.5)
[2023-05-18] MEDS ORDERED: NON FORMULARY MED (Melatonin [Melatonin] 5 MG Tablet) PO SCH (21:00)
[2023-05-18] MEDS: MELATONIN 10 MG PO SCH (21:23)
--- NOTE | 2023-05-18 22:52 | PROVIDER PROGRESS NOTE ---
Assessment/Plan - Problem List (1) Fracture, intertrochanteric, right femur Qualifiers: Encounter type: subsequent encounter Fracture type: closed Fracture alignment: nondisplaced Assessment/Plan: Mr. Carlson is status post surgery performed on 05/17/2023. He underwent a closed reduction and InterTAN nailing of right hip fracture. Continue DVT prophylaxis with Lovenox 30 mg twice daily. Qualifiers: Encounter type: initial encounter Fracture type: closed (2) Hypertension Conclusion/Plan: Continue metoprolol and losartan. - Current Meds Current Meds: Current Medications Generic Name Dose Route Start Last Admin Trade Name Freq PRN Reason Stop Dose Admin Acetaminophen 1,000 mg 05/17/23 12:00 05/18/23 18:19 Acetaminophen 500 Mg Tablet PO 1,000 mg Q6H JANICE Administration Hydrocodone Bitart/Acetaminophen 1 tab 05/16/23 16:47 05/17/23 08:03 Hydrocod/Acetam 5/325 Mg Tablet PO 1 tab Q4HR PRN Administration Pain 5 to 7 Alcohol 1 amp 05/17/23 21:00 05/18/23 21:22 Ethyl Alcohol 62% Swab Ampule CHON 1 amp BID JANICE Administration Aspirin 81 mg 05/17/23 21:00 05/18/23 21:22 Aspirin Ec 81 Mg Tablet PO 81 mg BID JANICE Administration Bacitracin 1 packet 05/17/23 17:02 05/17/23 20:24 Bacitracin Zinc Oint 1 Packet TOP 1 packet PRN PRN Administration Skin Care Celecoxib 200 mg 05/17/23 21:00 05/18/23 21:22 Celecoxib 100 Mg Capsule PO Not Given BID JANICE Enoxaparin Sodium 30 mg 05/18/23 09:00 05/18/23 21:22 Enoxaparin 30 Mg/0.3 Ml Syringe SUBQ 30 mg BID JANICE Administration Losartan Potassium 25 mg 05/17/23 09:00 05/18/23 09:20 Losartan 50 Mg Tablet PO 25 mg DAILY JANICE Administration Metoprolol Succinate 12.5 mg 05/16/23 22:00 05/18/23 21:21 Metoprolol Succinate 25 Mg Tablet PO 12.5 mg HS JANICE Administration Pantoprazole Sodium 40 mg 05/17/23 07:00 05/18/23 06:46 Pantoprazole 40 Mg Tablet PO Not Given QDAC JANICE Patient Own Medication 0.5 each 05/18/23 21:00 05/18/23 21:23 Patient Own Med PO Not Given HS JANICE Sodium Chloride 10 ml 05/16/23 17:00 05/18/23 18:21 Sodium Chloride Flush 0.9% 10 Ml Syringe IVP 10 ml 0100,0900,1700 JANICE Administration Sodium Chloride 10 ml 05/17/23 17:00 05/18/23 18:21 Sodium Chloride Flush 0.9% 10 Ml Syringe IVP Not Given 0100,0900,1700 JANICE Zolpidem Tartrate 5 mg 05/16/23 21:00 05/18/23 21:21 Zolpidem 5 Mg Tablet PO 5 mg QPM PRN Administration Insomnia - Lab Result Fish Bone Diagrams: 05/18/23 10:40 05/18/23 10:40 - Additional Planning My Orders: My Active Orders 05/18/23 09:00 Enoxaparin [Lovenox] 30 mg SUBQ BID 05/18/23 21:00 Patient Own Med 0.5 each PO HS Subjective - Subjective Patient Reports: Other (Alert. Pain in right hip is improved since surgery. Patient is ambulating. No other complaints at this time.) Objective Vital Signs: Vital Signs - 24 hr 05/18/23 05/18/23 05/18/23 00:28 05:33 08:00 Temperature 36.9 C 36.5 C 37.2 C Heart Rate [ 72 73 79 Brachial] Respiratory 18 18 18 Rate Blood Pressure 118/62 156/78 H 139/73 H [Right Brachial artery] O2 Saturation 93 93 94 05/18/23 05/18/23 05/18/23 09:14 09:25 16:00 Temperature 37.2 C 36.8 C 36.5 C Heart Rate [ 79 78 Brachial] Respiratory 18 18 Rate Blood Pressure 139/73 H 137/62 H [Right Brachial artery] O2 Saturation 94 95 Oxygen O2 Source Room air I&O (Last 24 Hrs): Intake and Output Totals x24h 05/16/23 05/17/23 05/18/23 23:59 23:59 23:59 Intake Total 340 2145.413 800 Output Total 125 1425 1730 Balance 215 720.413 -930 General: Alert, No acute distress Neck: No JVD Neuro: Alert, Non Focal Cardiovascular: Other (Positive S1-S2 no extra heart sounds.) Respiratory: Other (Good air exchange in all lung stanley no wheezing no crackles.) Abdomen: Other (Soft nontender positive bowel sounds) Extremities: No edema Skin: No rashes - Results Results: Laboratory Results WBC 11.1 x10^3/uL (4.8-10.8) H 05/18/23 10:40 RBC 3.95 10^6/uL (4.70-6.10) L 05/18/23 10:40 Hgb 12.0 g/dL (14.0-18.0) L 05/18/23 10:40 Hct 37.3 % (42.0-52.0) L 05/18/23 10:40 MCV 94.4 fL (80.0-94.0) H 05/18/23 10:40 MCH 30.4 pg (27.0-31.0) 05/18/23 10:40 MCHC 32.2 g/dL (32.0-36.0) 05/18/23 10:40 RDW 12.9 % (12.0-15.0) 05/18/23 10:40 Plt Count 151 10^3/uL (130-450) 05/18/23 10:40 MPV 9.1 fL (7.4-11.4) 05/18/23 10:40 Neut # (Auto) 10.3 10^3/uL (1.5-6.6) H 05/18/23 10:40 Lymph # (Auto) 0.4 10^3/uL (1.5-3.5) L 05/18/23 10:40 [place] # (Auto) 0.3 10^3/uL (0.0-1.0) 05/18/23 10:40 Eos # (Auto) 0.0 10^3/uL (0.0-0.7) 05/18/23 10:40 Baso # (Auto) 0.0 10^3/uL (0.0-0.1) 05/18/23 10:40 Absolute Nucleated RBC 0.00 x10^3/uL 05/18/23 10:40 Nucleated RBC % 0.0 /100WBC 05/18/23 10:40 PT 11.6 secs (9.9-12.6) 05/16/23 14:28 INR 1.1 (0.8-1.2) 05/16/23 14:28 Sodium 138 mmol/L (135-145) 05/18/23 10:40 Potassium 4.3 mmol/L (3.5-4.5) 05/18/23 10:40 Chloride 108 mmol/L (101-111) 05/18/23 10:40 Carbon Dioxide 25 mmol/L (21-32) 05/18/23 10:40 Anion Gap 5.0 (6-13) L 05/18/23 10:40 BUN 21 mg/dL (6-20) H 05/18/23 10:40 Creatinine 1.1 mg/dL (0.6-1.3) 05/18/23 10:40 Estimated GFR (MDRD) 65 (>89) L 05/18/23 10:40 Glucose 150 mg/dL (74-104) H 05/18/23 10:40 Calcium 9.6 mg/dL (8.5-10.3) 05/18/23 10:40 Phosphorus 2.4 mg/dL (2.5-5.0) L 05/18/23 10:40 Magnesium 2.0 mg/dL (1.7-2.3) 05/18/23 10:40 Total Bilirubin 0.8 mg/dL (0.2-1.0) 05/16/23 14:28 AST 18 IU/L (10-42) 05/16/23 14:28 ALT 13 IU/L (10-60) 05/16/23 14:28 Alkaline Phosphatase 49 IU/L (42-121) 05/16/23 14:28 Total Protein 6.3 g/dL (6.4-8.9) L 05/16/23 14:28 Albumin 4.3 g/dL (3.2-5.5) 05/16/23 14:28 Globulin 2.0 g/dL (2.1-4.2) L 05/16/23 14:28 Albumin/Globulin Ratio 2.2 (1.0-2.2) 05/16/23 14:28 Blood Type A NEGATIVE 05/16/23 14:28 Blood Type Recheck A NEGATIVE 05/16/23 15:43 Antibody Screen NEGATIVE 05/16/23 14:28
--- NOTE | 2023-05-19 09:42 | PROVIDER PROGRESS NOTE ---
Subjective - Prog Note Date Prog Note Date: 05/19/23 Prog Note Time: 09:39 - Subjective Pt reports feeling: Improved Objective - Vital Signs/Intake & Output Vital Signs: Vital Signs x48h Temp Pulse Resp BP Pulse Ox 05/19/23 08:00 36.8 C 67 18 106/69 93 Intake & Output: Intake & Output 05/16/23 05/17/23 05/18/23 05/19/23 23:59 23:59 23:59 23:59 Intake Total 340 2145.413 800 Output Total 125 1425 1930 300 Balance 215 720.413 -1130 -300 - Lab Results Fish Bones: 05/18/23 10:40 05/18/23 10:40 Other Labs: Lab Results x24hrs 05/18/23 05/18/23 Range/Units 10:40 10:40 WBC 11.1 H (4.8-10.8) x10^3/uL RBC 3.95 L (4.70-6.10) 10^6/uL Hgb 12.0 L (14.0-18.0) g/dL Hct 37.3 L (42.0-52.0) % MCV 94.4 H (80.0-94.0) fL MCH 30.4 (27.0-31.0) pg MCHC 32.2 (32.0-36.0) g/dL RDW 12.9 (12.0-15.0) % Plt Count 151 (130-450) 10^3/uL MPV 9.1 (7.4-11.4) fL Neut # (Auto) 10.3 H (1.5-6.6) 10^3/uL Lymph # (Auto) 0.4 L (1.5-3.5) 10^3/uL [place] # (Auto) 0.3 (0.0-1.0) 10^3/uL Eos # (Auto) 0.0 (0.0-0.7) 10^3/uL Baso # (Auto) 0.0 (0.0-0.1) 10^3/uL Absolute Nucleated RBC 0.00 x10^3/uL Nucleated RBC % 0.0 /100WBC Sodium 138 (135-145) mmol/L Potassium 4.3 (3.5-4.5) mmol/L Chloride 108 (101-111) mmol/L Carbon Dioxide 25 (21-32) mmol/L Anion Gap 5.0 L (6-13) BUN 21 H (6-20) mg/dL Creatinine 1.1 (0.6-1.3) mg/dL Estimated GFR (MDRD) 65 L (>89) Glucose 150 H (74-104) mg/dL Calcium 9.6 (8.5-10.3) mg/dL Phosphorus 2.4 L (2.5-5.0) mg/dL Magnesium 2.0 (1.7-2.3) mg/dL - Other Results/Comments Other Results/Comments: EXAMINATION: Dressing intact. Standing on the floor without problem. N/V ok distally Assessment/Plan - Problem List (1) Fracture, intertrochanteric, right femur Impression: doing well postop. PLAN: Discharge home with home PT whenindependent per PT> LIkely Mon or Tues. Walker ambulate WBAT on left. Follow up in Ortho clinic in 10-14 days for raf out and XR. Qualifiers: Encounter type: subsequent encounter Fracture type: closed Fracture alignment: nondisplaced
[2023-05-19] MEDS ORDERED: HYDROcod/ACETAM 5/325 MG TABLET PO PRN (17:48)
[2023-05-19] MEDS: oxyCODONE 5 MG TABLET PO PRN (18:01)
[2023-05-19] MEDS: ACETAMINOPHEN 325 MG TABLET PO SCH (19:02)
--- NOTE | 2023-05-19 21:57 | PROVIDER PROGRESS NOTE ---
Assessment/Plan - Problem List (1) Fracture, intertrochanteric, right femur Qualifiers: Encounter type: subsequent encounter Fracture type: closed Fracture alignment: nondisplaced Assessment/Plan: Mr. Carlson is status post surgery performed on 05/17/2023. He underwent a closed reduction and InterTAN nailing of right hip fracture. Continue DVT prophylaxis with Lovenox 30 mg twice daily. He was evaluated by physical therapy and although his ability to ambulate has improved he was not stable for discharge today. Reevaluate tomorrow. Qualifiers: Encounter type: initial encounter Fracture type: closed (2) Hypertension Conclusion/Plan: Continue metoprolol and losartan. - Current Meds Current Meds: Current Medications Generic Name Dose Route Start Last Admin Trade Name Freq PRN Reason Stop Dose Admin Acetaminophen 650 mg 05/19/23 19:00 05/19/23 19:02 Acetaminophen 325 Mg Tablet PO 650 mg Q6HR JANICE Administration Alcohol 1 amp 05/17/23 21:00 05/19/23 20:04 Ethyl Alcohol 62% Swab Ampule CHON 1 amp BID JANICE Administration Aspirin 81 mg 05/17/23 21:00 05/19/23 20:04 Aspirin Ec 81 Mg Tablet PO 81 mg BID JAINCE Administration Bacitracin 1 packet 05/17/23 17:02 05/17/23 20:24 Bacitracin Zinc Oint 1 Packet TOP 1 packet PRN PRN Administration Skin Care Celecoxib 200 mg 05/17/23 21:00 05/19/23 20:04 Celecoxib 100 Mg Capsule PO 200 mg BID JANICE Administration Enoxaparin Sodium 30 mg 05/18/23 09:00 05/19/23 20:04 Enoxaparin 30 Mg/0.3 Ml Syringe SUBQ 30 mg BID JANICE Administration Losartan Potassium 25 mg 05/17/23 09:00 05/19/23 10:08 Losartan 50 Mg Tablet PO 25 mg DAILY JANICE Administration Metoprolol Succinate 12.5 mg 05/16/23 22:00 05/19/23 20:04 Metoprolol Succinate 25 Mg Tablet PO 12.5 mg HS JANICE Administration Oxycodone HCl 5 mg 05/17/23 11:35 05/19/23 18:01 Oxycodone 5 Mg Tablet PO 5 mg Q6HR PRN Administration Severe Breakthrough pain(8-10) Pantoprazole Sodium 40 mg 05/17/23 07:00 05/19/23 06:57 Pantoprazole 40 Mg Tablet PO Not Given QDAC JANICE Patient Own Med ( 0.5 each 05/18/23 21:00 05/19/23 20:05 Melatonin 10mg) PO 0.5 each HS JANICE Administration Sodium Chloride 10 ml 05/16/23 17:00 05/19/23 20:03 Sodium Chloride Flush 0.9% 10 Ml Syringe IVP 10 ml 0100,0900,1700 JANICE Administration Sodium Chloride 10 ml 05/17/23 17:00 05/19/23 20:04 Sodium Chloride Flush 0.9% 10 Ml Syringe IVP Not Given 0100,0900,1700 JANICE Zolpidem Tartrate 5 mg 05/16/23 21:00 05/18/23 21:21 Zolpidem 5 Mg Tablet PO 5 mg QPM PRN Administration Insomnia - Lab Result Fish Bone Diagrams: 05/18/23 10:40 05/18/23 10:40 - Additional Planning My Orders: My Active Orders 05/18/23 21:00 Patient Own Med 0.5 each PO HS 05/19/23 Home Health Referral [CONS] Routine Social Work Consult [CONS] Routine 05/19/23 17:48 HYDROcod/ACETAM 5/325 [[place] 5/325] 1 tab PO Q4HR PRN Subjective - Subjective Patient Reports: Other (Alert. Overall feeling better. Continues to have pain in his right hip but overall improved. No other complaints at this time.) Objective Vital Signs: Vital Signs - 24 hr 05/18/23 05/19/23 05/19/23 23:49 08:00 15:45 Temperature 37.0 C 36.8 C 36.9 C Heart Rate [ 74 67 62 Brachial] Respiratory 18 18 20 Rate Blood Pressure 126/65 106/69 117/63 [Right Brachial artery] O2 Saturation 94 93 94 Oxygen O2 Source Room air I&O (Last 24 Hrs): Intake and Output Totals x24h 05/17/23 05/18/23 05/19/23 23:59 23:59 23:59 Intake Total 2145.132 923 2910 Output Total 1425 1930 800 Balance 720.413 -1130 265 General: Alert, Oriented x3, No acute distress Neck: Supple, No JVD Neuro: Alert, Non Focal Cardiovascular: Other (Positive S1-S2 no extra heart sounds.) Respiratory: Other (Good air exchange in all lung stanley no wheezing no crackle s.) Abdomen: Normal bowel sounds, Soft, No tenderness Extremities: No cyanosis, No edema Skin: No rashes - Results Results: Laboratory Results WBC 11.1 x10^3/uL (4.8-10.8) H 05/18/23 10:40 RBC 3.95 10^6/uL (4.70-6.10) L 05/18/23 10:40 Hgb 12.0 g/dL (14.0-18.0) L 05/18/23 10:40 Hct 37.3 % (42.0-52.0) L 05/18/23 10:40 MCV 94.4 fL (80.0-94.0) H 05/18/23 10:40 MCH 30.4 pg (27.0-31.0) 05/18/23 10:40 MCHC 32.2 g/dL (32.0-36.0) 05/18/23 10:40 RDW 12.9 % (12.0-15.0) 05/18/23 10:40 Plt Count 151 10^3/uL (130-450) 05/18/23 10:40 MPV 9.1 fL (7.4-11.4) 05/18/23 10:40 Neut # (Auto) 10.3 10^3/uL (1.5-6.6) H 05/18/23 10:40 Lymph # (Auto) 0.4 10^3/uL (1.5-3.5) L 05/18/23 10:40 Crowley # (Auto) 0.3 10^3/uL (0.0-1.0) 05/18/23 10:40 Eos # (Auto) 0.0 10^3/uL (0.0-0.7) 05/18/23 10:40 Baso # (Auto) 0.0 10^3/uL (0.0-0.1) 05/18/23 10:40 Absolute Nucleated RBC 0.00 x10^3/uL 05/18/23 10:40 Nucleated RBC % 0.0 /100WBC 05/18/23 10:40 PT 11.6 secs (9.9-12.6) 05/16/23 14:28 INR 1.1 (0.8-1.2) 05/16/23 14:28 Sodium 138 mmol/L (135-145) 05/18/23 10:40 Potassium 4.3 mmol/L (3.5-4.5) 05/18/23 10:40 Chloride 108 mmol/L (101-111) 05/18/23 10:40 Carbon Dioxide 25 mmol/L (21-32) 05/18/23 10:40 Anion Gap 5.0 (6-13) L 05/18/23 10:40 BUN 21 mg/dL (6-20) H 05/18/23 10:40 Creatinine 1.1 mg/dL (0.6-1.3) 05/18/23 10:40 Estimated GFR (MDRD) 65 (>89) L 05/18/23 10:40 Glucose 150 mg/dL (74-104) H 05/18/23 10:40 Calcium 9.6 mg/dL (8.5-10.3) 05/18/23 10:40 Phosphorus 2.4 mg/dL (2.5-5.0) L 05/18/23 10:40 Magnesium 2.0 mg/dL (1.7-2.3) 05/18/23 10:40 Total Bilirubin 0.8 mg/dL (0.2-1.0) 05/16/23 14:28 AST 18 IU/L (10-42) 05/16/23 14:28 ALT 13 IU/L (10-60) 05/16/23 14:28 Alkaline Phosphatase 49 IU/L (42-121) 05/16/23 14:28 Total Protein 6.3 g/dL (6.4-8.9) L 05/16/23 14:28 Albumin 4.3 g/dL (3.2-5.5) 05/16/23 14:28 Globulin 2.0 g/dL (2.1-4.2) L 05/16/23 14:28 Albumin/Globulin Ratio 2.2 (1.0-2.2) 05/16/23 14:28 Blood Type A NEGATIVE 05/16/23 14:28 Blood Type Recheck A NEGATIVE 05/16/23 15:43 Antibody Screen NEGATIVE 05/16/23 14:28
--- NOTE | 2023-05-20 08:55 | PROVIDER PROGRESS NOTE ---
Subjective - Prog Note Date Prog Note Date: 05/20/23 Prog Note Time: 08:53 - Subjective Pt reports feeling: Improved Objective - Vital Signs/Intake & Output Vital Signs: Vital Signs x48h Temp Pulse Resp BP Pulse Ox 05/20/23 06:00 36.9 C 64 16 117/63 97 Intake & Output: Intake & Output 05/17/23 05/18/23 05/19/23 05/20/23 23:59 23:59 23:59 23:59 Intake Total 2145.547 774 8665 Output Total 1425 1930 800 400 Balance 720.413 -1130 265 -400 - Lab Results Fish Bones: 05/18/23 10:40 05/18/23 10:40 - Other Results/Comments Other Results/Comments: Examination: Patient's dressing is still intact. Patient moves his hip today with mild pain. Neurovascular intact distally. Assessment/Plan - Problem List (1) Fracture, intertrochanteric, right femur Impression: -Doing well postoperatively Plan: Patient will have his wound dressing changed today prior to his discharge. Will be discharged home later today after his morning physical therapy session. Will give him oxycodone 5 mg p.o. every 4-6 hours as needed pain. Will follow- up in orthopedic clinic with Dr. Rodriguez in about 10 to 14 days for staple removal and x-rays. Will follow-up with me in my clinic in mid June for another set of x-rays of his hip at that time. He will continue to ambulate with his walker weightbearing as tolerated on his right lower extremity. Will need a home evaluation for probable home physical therapy as he transitions back home. Qualifiers: Encounter type: subsequent encounter Fracture type: closed Fracture alignment: nondisplaced
[2023-05-20 09:37] VITALS: O2SAT 93
[2023-05-20] MEDS: CALCIUM CARBONATE CHEW 500 MG TABLET PO SCH (10:41)
[2023-05-20] MEDS: CHOLECALCIFEROL 25 MCG TABLET PO SCH (10:41)
--- NOTE | 2023-05-20 10:57 | Discharge Plan ---
Discharge Plan Problem Reviewed?: Yes Disposition: Home, Self Care Condition: Stable Prescriptions: oxyCODONE [Roxicodone] 5 mg PO Q6HR PRN #15 tab PRN Reason: Severe Breakthrough pain(8-10) Aspirin EC [Ecotrin] 81 mg PO BID #60 tab Diet: Regular Activity Restrictions: Activity as Tolerated Weight Bearing: WB as tolerated Plan of Treatment: Continue taking aspirin 81 mg twice daily until your orthopedic surgery clinic visit. Additional Instructions or Follow Up instructions: Will follow-up in orthopedic clinic in about 10 to 14 days for staple removal and x-rays. He will continue to ambulate with his walker weightbearing as tolerated on his right lower extremity. Will need a home evaluation for probable home physical therapy as he transitions back home. No Smoking: If you smoke, Please STOP! Call for help.
--- NOTE | 2023-05-20 10:58 | DISCHARGE SUMMARY ---
"Discharge Summary Admit Date: 05/16/23 Discharge Date: 05/20/23 Discharging Provider: Dony Bull Primary Care Provider: Christ Ayala Code Status: Attempt Resuscitation Condition at Discharge: Good Discharge Disposition: 01 Home, Self Care - DIAGNOSES Discharge Diagnoses with Status of Each Condition: 1. Right femur fracture - HPI History of Present Illness: Froy Carlson is a 73-year-old man who presented to the emergency room after ground-level fall. He has a past medical history significant for hypertension, hyperlipidemia and is status post mitral valve surgery. He slipped and fell on his right hip at home and because he was unable to bear weight or walk he was brought by ambulance to the emergency room for further evaluation. Imaging study revealed an acute right-sided subcapital mildly impacted femoral neck fracture. - CONSULTS | PROCEDURES Consultations: Orthopedic surgery Procedures: Closed reduction and InterTAN nailing of right hip fracture on 05/17/23 - HOSPITAL COURSE Hospital Course: Patient is a 73-year-old male who presented to the ED after sustaining a ground- level fall. An x-ray was performed which revealed an acute right sided subcapital mildly impacted femoral neck fracture. Patient was admitted and underwent a closed reduction and InterTAN nailing of his right hip fracture on 05/16. Postoperative course was uncomplicated. Patient was discharged after PT/OT. Orthopedic surgery will follow-up with him in 10 to 14 days for staple removal and x-rays. He will then have another follow-up in mid June for another set of x-rays. Patient is recommended to continue to ambulate with a walker and weightbearing as tolerated in his right lower extremity. He was discharged with home health for physical therapy. - ALLERGIES Allergies/Adverse Reactions: Allergies Allergy/AdvReac Type Severity Reaction Status Date / Time No Known Drug Allergies Allergy Verified 05/16/23 14:15 - MEDICATIONS Home Medications: Ambulatory Orders Medication Instructions Recorded Confirmed Atorvastatin [Lipitor] 20 mg PO UD 05/16/23 05/16/23 Calcium 26/Vit D3/Magnesium 15 1 cap PO DAILY 05/16/23 05/16/23 [Dhcgnkj-[id number]-G2 Complx 167Mg Cp] Glucos Sul 2Kcl/MSM/Chond/C/Mn 1 cap PO BID 05/16/23 05/16/23 [Glucosamine Chondroitin Cap] Losartan Potassium 25 mg PO DAILY 05/16/23 05/16/23 Metoprolol Succinate [Toprol Xl] 25 mg PO DAILY 05/16/23 05/16/23 Multivitamin 1 tab PO DAILY 05/16/23 05/16/23 Chester-3S/Dha/Epa/Fish Oil/D3 1 cap PO DAILY 05/16/23 05/16/23 [Chester-3 + D Softgel] Vit A/C/E/Zinc/Selenium/Copper 1 tab PO DAILY 05/16/23 05/16/23 [Vision Formula Tablet] flaxseed oiL [Flaxseed Oil] 1,000 mg PO DAILY 05/16/23 05/16/23 Melatonin 1 tab PO HS 05/18/23 05/18/23 Aspirin EC [Ecotrin] 81 mg PO BID #60 tab 05/20/23 oxyCODONE [Roxicodone] 5 mg PO Q6HR PRN #15 tab 05/20/23 - PHYSICAL EXAM AT DISCHARGE General Appearance: positive: No acute distress, Alert Respiratory: positive: Chest non-tender, Breath sounds nml. negative: Wheezes Cardiovascular: positive: Regular rate & rhythm, No murmur, No gallop Abdomen: positive: Non-tender Skin: positive: Color nml Extremities: positive: Non-tender, No pedal edema - LABS Result Diagrams: 05/18/23 10:40 05/18/23 10:40 - FOLLOW UP Follow Up: Follow up with PCP in 3-5 days. Follow up with Orthopedic surgery in 10-14 days for staple removal and Xrays. - TIME SPENT Time Spent in Discharge (Minutes): 30"
[2023-05-20] MEDS: DOCUSATE SODIUM 100 MG CAPSULE PO PRN (13:02)
[2023-05-20 14:35] VITALS: BP 138/79
== END 2023-05-20 14:38 | disposition home or self-care (01) | DRG 482 ==
LOC: ED 14:02 → MS2 16:29
PROVIDERS: ADMIT Internal Medicine; ATTEND Family Medicine
PROC: 0QS634Z Reposition Right Upper Femur with Internal Fixation Device, Percutaneous Approach (ICD-10-PCS; principal; 2023-05-17 09:00)
DX: S72.141A Displaced intertrochanteric fracture of right femur, initial encounter for closed fracture (principal); W01.0XXA Fall on same level from slipping, tripping and stumbling without subsequent striking against object, initial encounter; Y92.009 Unspecified place in unspecified non-institutional (private) residence as the place of occurrence of the external cause; I10 Essential (primary) hypertension; E78.00 Pure hypercholesterolemia, unspecified; Z79.82 Long term (current) use of aspirin; Z79.899 Other long term (current) drug therapy; Z85.46 Personal history of malignant neoplasm of prostate
CPT/HCPCS: 36415; 73502; 80048; 80053; 83735; 84100; 85025; 85610; 86850; 86900; 86901; 93005; 97110; 97116; 97162; 97166; 97530; 99285; A9270; J1650; J2372; J2795; J3490; J7120; J8540

== ENCOUNTER 2023-06-17 09:02 | Outpatient (CLI) | payer MEDICARE, BC ==
[2023-06-17 09:22] LABS: BASOPHILS % (AUTO) 0.2 %; EOSINOPHILS # (AUTO) 0.3 10^3/uL (0.0-0.7); EOSINOPHILS % (AUTO) 4.5 %; HCT - HEMATOCRIT 44.3 % (42.0-52.0); LYMPHOCYTES # (AUTO) 1.1 10^3/uL (1.5-3.5); LYMPHOCYTES % (AUTO) 19.5 %; MEAN CORPUSCULAR HEMOGLOBIN 30.8 pg (27.0-31.0); MEAN CORPUSCULAR HGB CONC 31.6 g/dL (32.0-36.0); MEAN CORPUSCULAR VOLUME 97.4 fL (80.0-94.0); MEAN PLATELET VOLUME 8.9 fL (7.4-11.4); MONOCYTES # (AUTO) 0.5 10^3/uL (0.0-1.0); MONOCYTES % (AUTO) 8.6 %; NEUTROPHILS # (AUTO) 3.8 10^3/uL (1.5-6.6); NEUTROPHILS % (AUTO) 66.8 %; PLT - PLATELET COUNT 203 10^3/uL (130-450); RED BLOOD COUNT 4.55 10^6/uL (4.70-6.10); RED CELL DISTRIBUTION WIDTH 13.5 % (12.0-15.0); WHITE BLOOD COUNT 5.6 x10^3/uL (4.8-10.8)
[2023-06-17 09:57] LABS: ALBUMIN 4.6 g/dL (3.2-5.5); ALBUMIN/GLOBULIN RATIO 1.8 (1.0-2.2); ALKALINE PHOSPHATASE 74 IU/L (42-121); ALT ALANINE AMINOTRANSFERASE 12 IU/L (10-60); AST ASPARTATE AMINOTRANSFERASE 16 IU/L (10-42); BILIRUBIN,TOTAL 0.7 mg/dL (0.2-1.0); BUN - BLOOD UREA NITROGEN 26 mg/dL (6-20); CALCIUM 11.1 mg/dL (8.5-10.3); CARBON DIOXIDE - CO2 28 mmol/L (21-32); CHLORIDE 105 mmol/L (101-111); CHOL/HDL RATIO 2.7 (<5.0); CHOLESTEROL 146 mg/dL; CREATININE 1.2 mg/dL (0.6-1.3); GFR - MDRD 59 (>89); GLUCOSE 109 mg/dL (74-104); HDL CHOLESTEROL 55 mg/dL; LDL CHOLESTEROL,CALCULATED 75 mg/dL; LDL/HDL RATIO 1.4 (<3.6); POTASSIUM 4.9 mmol/L (3.5-4.5); SODIUM 141 mmol/L (135-145); TOTAL PROTEIN 7.1 g/dL (6.4-8.9); TRIGLYCERIDES 81 mg/dL (48-352); VLDL CHOLESTEROL 16 mg/dL
[2023-06-17 10:05] LABS: THYROID STIMULATING HORMONE 4.21 uIU/mL (0.34-5.60)
== END 2023-06-17 09:03 | disposition home or self-care (01) ==
LOC: LAB 09:02
PROVIDERS: ATTEND Nurse Practitioner Family
DX: R79.83 Abnormal findings of blood amino-acid level (principal); R73.09 Other abnormal glucose; E55.9 Vitamin D deficiency, unspecified; I10 Essential (primary) hypertension
CPT/HCPCS: 36415; 80053; 80061; 82306; 83090; 83721; 84153; 84443; 85025

== ENCOUNTER 2023-06-20 09:07 | Outpatient (CLI) | payer MEDICARE, BC ==
[2023-06-20 09:21] LABS: BASOPHILS % (AUTO) 0.3 %; EOSINOPHILS # (AUTO) 0.2 10^3/uL (0.0-0.7); EOSINOPHILS % (AUTO) 2.4 %; HCT - HEMATOCRIT 45.9 % (42.0-52.0); HGB - HEMOGLOBIN 14.1 g/dL (14.0-18.0); LYMPHOCYTES # (AUTO) 1.2 10^3/uL (1.5-3.5); LYMPHOCYTES % (AUTO) 16.8 %; MEAN CORPUSCULAR HEMOGLOBIN 29.8 pg (27.0-31.0); MEAN CORPUSCULAR HGB CONC 30.7 g/dL (32.0-36.0); MEAN PLATELET VOLUME 8.9 fL (7.4-11.4); MONOCYTES # (AUTO) 0.7 10^3/uL (0.0-1.0); MONOCYTES % (AUTO) 9.3 %; NEUTROPHILS % (AUTO) 70.9 %; PLT - PLATELET COUNT 196 10^3/uL (130-450); RED BLOOD COUNT 4.73 10^6/uL (4.70-6.10); RED CELL DISTRIBUTION WIDTH 13.3 % (12.0-15.0)
[2023-06-20 09:31] LABS: BILIRUBIN,URINE NEGATIVE (NEGATIVE); GLUCOSE, URINE (UA) NEGATIVE (NEGATIVE); KETONES,URINE (UA) NEGATIVE (NEGATIVE); LEUKOCYTE ESTERASE, URINE NEGATIVE (NEGATIVE); NITRITE,URINE NEGATIVE (NEGATIVE); OCCULT BLOOD,URINE NEGATIVE (NEGATIVE); PH,URINE 5.5 PH (5.0-7.5); PROTEIN,URINE NEGATIVE (NEGATIVE); UROBILINOGEN,URINE 0.2 (NORMAL) E.U./dL (NORMAL)
[2023-06-20 09:32] LABS: CLARITY,URINE CLEAR (CLEAR)
[2023-06-20 09:35] LABS: % IRON SATURATION 32 % (20-50); ALBUMIN 4.7 g/dL (3.2-5.5); ALBUMIN/GLOBULIN RATIO 2.1 (1.0-2.2); ALKALINE PHOSPHATASE 68 IU/L (42-121); ALT ALANINE AMINOTRANSFERASE 11 IU/L (10-60); AST ASPARTATE AMINOTRANSFERASE 15 IU/L (10-42); BILIRUBIN,TOTAL 0.7 mg/dL (0.2-1.0); BUN - BLOOD UREA NITROGEN 21 mg/dL (6-20); CALCIUM 10.9 mg/dL (8.5-10.3); CARBON DIOXIDE - CO2 31 mmol/L (21-32); CHLORIDE 103 mmol/L (101-111); CREATININE 1.2 mg/dL (0.6-1.3); GFR - MDRD 59 (>89); GLUCOSE 112 mg/dL (74-104); IRON 90 ug/dL (50-212); POTASSIUM 4.5 mmol/L (3.5-4.5); SODIUM 139 mmol/L (135-145); TOTAL IRON BINDING CAPACITY 284 ug/dL (250-450); TOTAL PROTEIN 6.9 g/dL (6.4-8.9); TRANSFERRIN 203 mg/dL (203-362)
[2023-06-20 10:06] LABS: RBC,URINE 0-5 /HPF (0-5); SQUAMOUS EPITHELIAL CELL,UR RARE Squamous (<= Few); WBC,URINE 0-3 /HPF (0-3)
[2023-06-20 10:07] LABS: BACTERIA,URINE Moderate /HPF (None Seen)
[2023-06-20 10:19] LABS: ESTIMATED AVERAGE GLUCOSE 97 mg/dL (70-100)
== END 2023-06-20 09:08 | disposition home or self-care (01) ==
LOC: LAB 09:07
PROVIDERS: ATTEND Nurse Practitioner Family
DX: N18.31 Chronic kidney disease, stage 3a (principal); R73.03 Prediabetes; D64.9 Anemia, unspecified
CPT/HCPCS: 36415; 80053; 81001; 82607; 82746; 83036; 83540; 84466; 85025; 87086

== ENCOUNTER 2023-06-28 10:07 | Outpatient (CLI) | payer MEDICARE, BC ==
--- NOTE | 2023-06-29 17:20 | XRAY Report ---
PROCEDURE: Hip w/Pelvis 2-3V RT INDICATIONS: Fx of right femur TECHNIQUE: Right hip radiograph on May 27, 2023 views of the hip were acquired. COMPARISON: Right hip radiograph on May 27, 2023. FINDINGS: Bones: Intramedullary hector and interlocking screw fixation of right subcapital femoral neck fracture is intact with no perihardware lucency to suggest hardware loosening. Stable alignment. Moderate bila teral femoroacetabular joint space narrowing and juxta-articular osteophytosis. Degenerative changes of lower lumbar spine. No suspicious bony lesions. Soft tissues: No suspicious soft tissue calcifications or masses. IMPRESSION: ORIF of the right femoral neck fracture is intact without complication. Stable alignment. Reviewed by: Amarilys Macias MD on 06/29/2023 5:18 PM PDT Approved by: Amarilys Macias MD on 06/29/2023 5:18 PM PDT Station ID: [id number]
== END 2023-06-28 10:08 | disposition home or self-care (01) ==
LOC: DI 10:07
PROVIDERS: ATTEND Orthopaedic Surgery
DX: S72.041D Displaced fracture of base of neck of right femur, subsequent encounter for closed fracture with routine healing (principal)